=== PATIENT | male | born 1985 | race Caucasian/White ===

== ENCOUNTER 2016-08-09 18:56 | Emergency (ER) | payer BC, OTHER ==
[~2016-08-09] VITALS: Ht 170.2 cm; Wt 108.9 kg
[2016-08-09] MEDS: ADACEL/BOOSTRIX VACCINE (DIPHTH/PERTUSS/ACELL/TETANUS)0.5ML SYR (90715) IM ONE (20:49)
[2016-08-09] MEDS: NORCO 5/325MG TABLET (BULK FOR ED) PO ONE (21:08)
[2016-08-09 21:12] VITALS: BP 136/78
== END 2016-08-09 21:15 | disposition home or self-care (01) ==
LOC: M ED 20:03
DX: S91.201A Unspecified open wound of right great toe with damage to nail, initial encounter (principal); W22.8XXA Striking against or struck by other objects, initial encounter; Y92.019 Unspecified place in single-family (private) house as the place of occurrence of the external cause; Y93.89 Activity, other specified; Y99.8 Other external cause status

== ENCOUNTER 2018-03-07 21:14 | Emergency (ER) | payer SELFPAY, BC ==
[2018-03-07] MEDS: GI COCKTAIL 50ML BTL(HYOSCYAMINE/MAALOX/LIDOCAINE VISCOUS)(1:3:1) PO (21:55)
[2018-03-07] MEDS: NS 1,000 ML IV (21:56)
[2018-03-07] MEDS: ONDANSETRON 4MG/2ML VIAL (J2405) IV (21:56)
[2018-03-07] MEDS: MORPHINE 4 MG/ML 1ML VIAL/SYRINGE (J2270) IV (21:57)
[2018-03-07] MEDS: PANTOPRAZOLE 40MG INJ (PROTONIX) (C9113) IV (21:57)
[2018-03-07 22:03] LABS: BASO # 0.1 10^3/uL (0.0-0.2); BASO % 1.1 % (0.0-1.0); EOS # 0.3 10^3/uL (0.0-0.50); EOS % 2.7 % (0.0-3.0); HEMATOCRIT 42.7 % (42.0-52.0); HEMOGLOBIN 14.5 g/dl (13.5-17.5); IMMATURE GRANULOCYTE % 0.4 % (0-3.0); LYMPH # 2.9 10^3/uL (1.5-4.5); LYMPH % 31.8 % (24.0-44.0); MEAN CORPUSCULAR HEMOGLOBIN 28.5 pg (27.0-33.0); MEAN CORPUSCULAR VOLUME 84.1 fl (80.0-96.0); MONO % 10.6 % (0.0-5.0); NEUTROPHILS # 4.9 10^3/uL (1.8-7.7); NEUTROPHILS % 53.4 % (36.0-66.0); PLATELET COUNT, AUTOMATED 372 10^3/uL (150-450); RED BLOOD COUNT 5.08 10^6/uL (4.30-6.10); RED CELL DISTRIBUTION WIDTH 11.9 % (11.5-14.5); WHITE BLOOD COUNT 9.2 10^3/uL (4.0-10.0)
[2018-03-07 22:27] LABS: ALBUMIN/GLOBULIN RATIO 0.87 (1.00-1.93); ALKALINE PHOSPHATASE 70 U/L (45-117); ALT/SGPT 48 U/L (12-78); ANION GAP 9 MEQ/L (8-16); AST/SGOT 25 U/L (7-37); BILIRUBIN,DIRECT < 0.1 MG/DL (0.0-0.2); BILIRUBIN,TOTAL 0.3 MG/DL (0.2-1.0); BLOOD UREA NITROGEN 16 MG/DL (7-18); CARBON DIOXIDE LEVEL 27 MEQ/L (21-32); CHLORIDE LEVEL 104 MEQ/L (98-107); CREATININE FOR GFR 1.76 MG/DL (0.70-1.30); GLOMERULAR FILTRATION RATE 47.7 (>60); GLUCOSE, FASTING 106 MG/DL (70-100); LIPASE 283 U/L (73-393); POTASSIUM SERUM 3.9 MEQ/L (3.5-5.1); SODIUM LEVEL 140 MEQ/L (136-145); TOTAL PROTEIN 8.6 GM/DL (6.4-8.2)
[2018-03-07] MEDS: NS 2,140 ML in APPROPRIATE DILUENT 1 EA IV (23:00)
[2018-03-07 23:06] LABS: KETONE, URINE AUTO RFX NEGATIVE (NEGATIVE); LEUKOCYTE ESTERASE UR AUTO RFX NEGATIVE (NEGATIVE); NITRITE, URINE AUTO RFX NEGATIVE (NEGATIVE); RBC, URINE AUTO RFX 0 /HPF (0-3); SPECIFIC GRAVITY UR AUTO RFX 1.028 (1.002-1.035); SQUAM EPITHELIAL CELL UR AURFX 0 /HPF (0-6); WBC, URINE AUTO RFX 1 /HPF (0-3)
[2018-03-08 00:33] LABS: CK-MB VALUE MASS < 1.0 NG/ML (<3.6); CPK CREATINE PHOSPHOKINASE 119 U/L (39-308); MB/CK RELATIVE INDEX 0.84 (< OR =4); TROPONIN I < 0.02 NG/ML (< 0.10)
[2018-03-08 02:41] LABS: LACTIC ACID SEPSIS PROTOCOL 0.9 MMOL/L (0.4-2.0)
== END 2018-03-08 02:58 | disposition home or self-care (01) ==
LOC: M ED 03-08 02:58
DX: K52.9 Noninfective gastroenteritis and colitis, unspecified (principal); N28.9 Disorder of kidney and ureter, unspecified
CPT/HCPCS: C9113

== ENCOUNTER 2020-02-11 21:18 | Day surgery (SDC) | payer BC, SELFPAY ==
[~2020-02-11] VITALS: Ht 180.3 cm; Wt 102.2 kg
[~2020-02-11 21:18] MED LIST: HYDR-3715 PO; PROT1TAB2 PO; ZOFR4TAB14 PO
[2020-02-11] MEDS ORDERED: GLUCAGON INJ 1MG VIAL IV STA (22:04)
[2020-02-12] MEDS ORDERED: MIDAZOLAM INJ 2MG/2ML VIAL (J2250 PER 1MG) As Ordered ONE (00:42)
[2020-02-12] MEDS ORDERED: propofoL 200 MG/20 ML VIAL As Ordered ONE ×2 (00:42→00:58)
[2020-02-12] MEDS ORDERED: dexameTHASONE 4 MG/ML 1ML VIAL (J1100 PER 1MG) As Ordered ONE (00:42)
[2020-02-12] MEDS ORDERED: SUCCINYLCHOLINE 100 MG/5 ML SYRINGE (J0330) As Ordered ONE (00:42)
[2020-02-12] MEDS ORDERED: ONDANSETRON 4MG/2ML VIAL As Ordered ONE (00:42)
[2020-02-12] MEDS ORDERED: METOCLOPRAMIDE INJ 10MG/2ML VIAL (J2765 PER 1) As Ordered ONE (00:42)
[2020-02-12] MEDS ORDERED: LIDOCAINE 2% 100MG/5ML SDV (FOR ANES.) As Ordered ONE (00:42)
[2020-02-12] MEDS ORDERED: fentaNYL 100 MCG/2 ML INJECTION (J3010) As Ordered ONE (00:42)
[2020-02-12] MEDS ORDERED: OMEP40CA97 PO (01:24)
[2020-02-12 02:33] VITALS: BP 129/79
[2020-02-12] MEDS ORDERED: NS 1,000 ML IV SCH (03:00)
[2020-02-12] MEDS ORDERED: LR 1,000 ML IV SCH (03:00)
[2020-02-12] MEDS ORDERED: ONDANSETRON 4MG/2ML VIAL IV PRN (03:00)
[2020-02-12] MEDS ORDERED: fentaNYL 100 MCG/2 ML INJECTION (J3010) IV PRN (03:00)
== END 2020-02-12 02:42 | disposition home or self-care (01) ==
LOC: M ED 21:18 → M SDC 21:19 → M ED 02-12 00:59 → M SDC 02-12 02:42
PROVIDERS: ATTEND Surgery
DX: T18.128A Food in esophagus causing other injury, initial encounter (principal); Y92.89 Other specified places as the place of occurrence of the external cause; T17.228A Food in pharynx causing other injury, initial encounter
CPT/HCPCS: 43247; 96374; 99284; J0330; J1100; J1610; J2250; J2405; J2765; J3010; U0002

== ENCOUNTER → 2020-04-28 | Outpatient (CLI) | payer SELFPAY ==
[~2020-04-28] MED LIST changes: +OMEP40CA97 PO
== END ==
LOC: M LABSMTC 12:05
PROVIDERS: ATTEND Pediatrics
DX: Z11.52 Encounter for screening for COVID-19 (principal)